=== PATIENT | male | born 1940 | race Caucasian/White ===

== ENCOUNTER 2024-08-25 22:10 | Emergency (ER) | payer MEDICARE, OTHER, SELFPAY ==
[2024-08-25 22:13] VITALS: BP 144/87; BMI 24.4
[2024-08-25 22:15] VITALS: BP 144/87
[2024-08-25 23:12] LABS: ALT (SGPT) 27 U/L (0-50); AST (SGOT) 35 U/L (17-59); Albumin 4.8 g/dl (3.5-5.0); Alkaline Phosphatase 37 U/L (38-126); Blood Urea Nitrogen 39 mg/dl (9-20); Calcium 10.1 mg/dl (8.4-10.2); Carbon Dioxide 23 mmol/L (22-30); Chloride 106 mmol/L (98-107); Estimated Creatinine Clearance 45 ml/min; Glucose 130 mg/dl (70-99); Potassium 4.6 mmol/L (3.5-5.1); Sodium 140 mmol/L (135-145); Total Bilirubin 1.1 mg/dl (0.2-1.3); Total Protein 6.5 g/dl (6.3-8.2); eGFR > 60.00
[2024-08-25 23:15] LABS: Hematocrit 40.5 % (39.0-52.0); Hemoglobin 12.9 g/dL (13.0-18.0); Mean Corp Hgb Conc. 31.9 g/dL (33.0-37.0); Mean Corpuscular Hgb 28.5 pg (27.0-31.0); Mean Corpuscular Volume 89.4 fL (80.0-94.0); Platelet Count 105 10^3/uL (130-400); Red Blood Cell Count 4.53 10^6/uL (4.70-6.10); Red Cell Dist. Width 14.6 % (11.5-14.5); White Blood Cell Count 7.6 10^3/uL (4.8-10.8)
--- NOTE | 2024-08-25 23:21 | ED.GENMED ---
History of Present Illness
General
Chief Complaint: Cardiac Symptoms
Source: patient and spouse
Exam Limitations: none
Time Seen by Provider: 08/25/24 22:20
Nursing documentation reviewed up to this point in time: agreed with
History of Present Illness
History of Present Illness:
Note:
CHIEF COMPLAINT(S)
Palpitations and lightheadedness for the past three to four hours.
HISTORY OF PRESENT ILLNESS
The patient is an 84-year-old male who presented with palpitations and lightheadedness for the past three to four hours. He described experiencing a rhythm of three heartbeats followed by a pause, repeatedly, during these episodes. The patient
reported no chest pain or shortness of breath. He mentioned having had no recent changes in his cardiac history or medication. He has a pacemaker and is under the care of a brewery pumper, Dr. Naseem Hernandez at [facility]. The patients history
includes previous open-heart surgery, a five-bypass surgery in 2014, episodes of atrial fibrillation, and steady, but asymptomatic episodes of arrhythmia, noted during regular checks every six months.
The patient is on the blood thinner Apixaban (Eliquis) and reports adherence to his medication regimen. He has experienced leg swelling mainly on the right side, previously attributed to his chemotherapy medication.
CHRONIC MEDICAL CONDITIONS SIGNIFICANTLY AFFECTING CARE
- History of coronary artery disease and open-heart surgery.
- Pacemaker dependency for arrhythmia management.
- Episodes of atrial fibrillation.
MEDICATIONS
- Apixaban (Eliquis), no missed doses reported.
REVIEW OF SYSTEMS
- Cardiovascular: Palpitations described as three beats followed by a pause.
- General: Experiencing lightheadedness.
- Respiratory: No shortness of breath.
- Gastrointestinal: No nausea reported.
- Integumentary: Swelling predominantly in the right leg.
PHYSICAL EXAM
- Cardiovascular: No active palpitations at the time of examination. Heart sounds normal.
- Respiratory: Lung sounds clear.
- Integumentary: Right leg swelling noted.
Nursing notes reviewed and vital signs reviewed.
PROBLEM LIST
Acute:
- Palpitations
- Lightheadedness
Chronic:
- Coronary artery disease
- Pacemaker dependency
- Atrial fibrillation
PLAN
- Conduct a physical examination and blood work.
- Interrogate the pacemaker to assess any arrhythmic events.
- Perform a chest X-ray.
- Continue monitoring and evaluate findings from pacemaker interrogation and blood work.
DIFFERENTIAL DIAGNOSIS
The Differential Diagnosis includes, in no particular order and is not limited to:
1. Atrial fibrillation
2. Bradycardia
3. Ventricular tachycardia
4. Medication reaction
5. Dehydration
6. Sinus node dysfunction
7. Pacemaker malfunction
8. Heart block
9. Anemia
10. Electrolyte imbalance
EKG
My independent EKG interpretation is:
- Rhythm: Atrial-paced rhythm
- Heart Rate: 71 beats per minute
- Premature Supraventricular Complexes: Noted
- Comparison to Previous EKG (March 15, 2020): Change to atrial-paced rhythm
CARE-UPDATE
08/26/24 - 00:15
The chest X-ray indicates no infiltrate. There is slight pulmonary vascular congestion noted without the presence of pleural effusion.
Disposition:
SUMMARY OF ENCOUNTER
The patient is an 84-year-old male with a history of cardiac issues and CLL who presented with earlier symptoms of palpitations and lightheadedness, occurring between 5 and 6 p.m. He denied chest pain, though a brief episode of shortness of breath
was noted by his . Symptoms resolved by the time of presentation. The patient underwent a pacemaker interrogation which showed no acute processes. Blood work indicated normal results overall, though BNP was elevated, and creatinine levels
suggested dehydration. Troponin was negative, and a chest X-ray was normal. Based on these findings, he received fluids for dehydration.
DISPOSITION
The patient opted for discharge home, without symptoms, at his request.
ASSESSMENT
After evaluation, the patients symptoms were considered to possibly result from dehydration, which was resolved with fluid administration. Cardiac and respiratory acute issues were ruled out through normal pacemaker interrogation, troponin levels,
and chest X-ray results.
PLAN
- Discharge home at the patient�s request with resolved symptoms.
- Ensure patient understands when to seek medical attention if symptoms recur.
INDEPENDENT INTERPRETATION OF TESTS
- My independent interpretation of the blood work shows a BNP of 39, indicating fluid overload, and a creatinine level of 1.1, suggesting dehydration.
- My independent interpretation of the chest X-ray shows normal findings.
- Pacemaker interrogation indicated no acute processes.
FOLLOW-UP INSTRUCTIONS
The patient was discharged with no further symptoms and instructed to return for medical attention should symptoms recur or worsen.
MEDICATION RECONCILIATION
The patient is on Apixaban (Eliquis) for atrial fibrillation anticoagulation, with no reported missed doses.
MEDICAL DECISION MAKING
Number and Complexity of Problems Addressed: The patient presented with acute complaints of palpitations and lightheadedness. Chronic issues such as atrial fibrillation and CLL were considered in the differential diagnosis and management plan.
Data: Comprehensive evaluation included pacemaker interrogation, blood work, and imaging, ruling out acute cardiac issues. The assessment pointed towards dehydration as a contributing factor.
Risk: The patient has multiple chronic medical issues, and the decision to discharge was guided by resolution of acute symptoms and patients preference, indicating moderate risk. Consideration of further hospitalization or escalation was deemed
unnecessary upon symptom resolution.
Past History
Past History
ED Past Medical History: Arrthythmia (afib on ASA only), CAD, HTN, Hypercholesterolemia, NIDDM and Hypothyroidism
ED Past Surgical History: Cholecystectomy (03/10/20)
Social History
Tobacco: Non-smoker
Personal:
Review of Systems
Review of Systems
Allergies reviewed?: Yes
All Other Systems: ROS reviewed and negative except as documented in HPI and ROS
Constitutional: Reports no symptoms
EENT: Reports no symptoms
Respiratory: Reports no symptoms
Cardiac: Reports palpitations
ABD/GI: Reports no symptoms
: Reports no symptoms
Musculoskeletal: Reports no symptoms
Skin: Reports no symptoms
Neurological: Reports no symptoms
Endocrine: Reports no symptoms
Hematologic/Lymphatic: Reports no symptoms
Psychiatric: Reports anxiety
Phy Exam
General Physical Exam
General Presentation: well appearing and no apparent distress
General Skin: warm and dry
General Habitus: normal
General Mental: alert
General Hydration: appears well hydrated
ENT Exam
ENT Exam: EOMI, pharynx normal, neck supple and normocephalic
Eye Exam
Eye Exam: PERRL, cornea clear and conjunctiva normal
Cardiovascular Exam
Cardiovascular Exam: regular rate/rhythm, no edema, no murmur, normal peripheral pulses and other (Sternotomy scar midline)
Pulmonary Exam
Pulmonary Exam: lungs clear, no respiratory distress, no rales, no crackles, no rhonchi, no stridor, no wheezing and no cough
Gastrointestinal Exam
Gastrointestinal Exam: normal bowel sounds, non tender, soft, no organomegaly, no pulsatile mass and non distended
Neurological Exam
Neurological Exam: alert, oriented x3, no motor deficits and speech normal
Musculoskeletal Exam
Musculoskeletal Exam: full ROM and no edema
Skin Exam
Skin Exam: normal color, warm/dry, no rash and no petechia
Psychiatric Exam
Psychiatric Exam: normal mood/affect
Course
Orders/Labs/Results
Orders:
Orders
08/25/24 22:11
EKG [Electrocardiogram (*1)] Urgent
Reason for Study: Palpitations
08/25/24 22:12
EKG- Treatment ONCE
08/25/24 22:33
Cardiac Monitoring- Treatment ONCE
IV Insert/Care/Rem.- Treatment PRN
Pulse Ox/spot Check [RESP] Urgent
Quantity: 1
Special Instructions: ON ROOM AIR
08/25/24 22:36
Complete Blood Count/With Diff Urgent
Comprehensive Metabolic Panel Urgent
Manual Differential Urgent
NT-proBNP Urgent
Comment: ADD ON
Troponin I Urgent
08/26/24 00:00
CR Chest - 2 Views Urgent
Reason For Exam: palpitations
08/26/24 00:14
Add On- LAB Urgent
Tests Added?: pro-bnp
08/26/24 00:15
0.9% Sodium Chloride 500 ml [Nss] 500 ml IV BOLUS
Abnormal Lab Results
08/25/24
22:36
RBC 4.53 L 10^6/uL
(4.70-6.10)
Hgb 12.9 L g/dL
(13.0-18.0)
MCHC 31.9 L g/dL
(33.0-37.0)
RDW 14.6 H %
(11.5-14.5)
Plt Count 105 L 10^3/uL
(130-400)
BUN 39 H mg/dl
(9-20)
Glucose 130 H mg/dl
(70-99)
Alkaline Phosphatase 37 L U/L
(38-126)
08/25/24 22:36
08/25/24 22:36
Vital Signs
Initial and Last Documented VS:
Initial Vital Signs
Temp Pulse Resp BP Pulse Ox
98.1 F 69 18 144/87 98
08/25/24 22:13 08/25/24 22:13 08/25/24 22:13 08/25/24 22:13 08/25/24 22:13
Last Documented Vital Signs
Temp Pulse Resp BP Pulse Ox
98.1 F 70 20 144/87 96
08/25/24 22:13 08/25/24 23:00 08/25/24 23:00 08/25/24 22:15 08/25/24 23:00
*Pulse Oximetry
Patient hypoxic: no
*Critical Care Note
Total Time (30-74mins, 75-104mins- exclusive of procedures): Not Applicable
Update Note
Update Note:
Spoke with [employer] indirect sales representative. No events tonight to explain palpitations. Pacemaker is functioning normally.
ED Attending Note
-
Portions of this chart may have been created with voice recognition software.� Occasional wrong word or��sound alike� substitutions may have occurred due to the inherent limitations of voice recognition software.
Discharge Plan
Departure
Patient Disposition: Home (Routine Discharge)
Date of Disposition: 08/26/24
Time of Disposition: 00:51
Patient with high blood pressure during this ER visit?: Yes
Condition: Good
Discharge Problem:
Palpitations, Acute dehydration
Instructions: Dehydration in adults - ED discharge instructions, Palpitations - ED discharge instructions, BLOOD PRESSURE
Prescriptions:
No Action
tamsulosin 0.4 MG capsule
0.4 mg PO DAILY Qty: 14 0RF
cefdinir 300 MG capsule
300 mg PO BID Qty: 14 0RF
Referrals:
Brian De Anda DO [Family Provider, Family Practice]
Activity Restrictions/Additional Instructions:
Thank You for choosing [facility].
It was a pleasure meeting you and taking part in your care. We hope for your continued healing and wellness.
Please read discharge instructions in their entirety. However, they are for general education and may not describe your exact diagnosis at discharge. Information on your ER visit and medical conditions were discussed with you along with appropriate
follow up information...
If indicated, please take your medications as instructed and indicated on discharge paperwork.
Please schedule a follow up appointment as directed. Call to schedule an appointment
Please return to the emergency department with ANY change in, persisting, or worsening of symptoms. If any of your symptoms do not improve, or persist, or become more severe within 6-12 hours, please return to the emergency department for further
care.
Please return to the emergency department if you develop a headache, neck pain/stiffness, fever greater than 100.4F, chest pain, shortness of breath, persistent nausea, vomiting, slurred speech, difficulty walking, numbness/tingling, weakness, signs
of infection or any other symptoms that are worrisome to you.
If you have any questions or concerns please do not hesitate to call the Hospital at or E-mail me directly at [email or web address]
Interventions
Interventions:
*Risk Screen - Suicide Last Done: 08/25/24 22:13
*General Assessment Last Done: 08/25/24 22:13
*Neglect/Abuse Screening Last Done: 08/25/24 22:13
*ED- Fall Risk Assessment Last Done: 08/25/24 22:13
ED- Pulmonary Assessment Last Done: 08/25/24 22:39
ED- Cardiac Assessment Last Done: 08/25/24 22:39
Discharge Date and Time
Print Language: WELSH
[2024-08-25 23:24] LABS: Troponin I < 0.012 ng/ml
[2024-08-26] MEDS: NSS 500 IV (00:15)
[2024-08-26 00:22] VITALS: BP 101/64
[2024-08-26 00:57] LABS: NT-proBNP 473 pg/ml
[2024-08-26 01:00] VITALS: BP 103/61
[2024-08-27 14:51] LABS: Band Neutrophils 0 % (0-3); Segmented Neutrophils 1 % (42-75)
[2024-08-27 14:52] LABS: Atypical Lymphocytes 59 %; Eosinophils 1 % (0-6); Lymphocytes 39 % (20-51)
[2024-08-27 14:53] LABS: Platelets Checked Yes
[2024-08-27 15:03] LABS: Normal RBC Morphology No
[2024-08-27 15:06] LABS: Acanthocytes Slight; Anisocytosis Slight; Hypochromasia Slight; Ovalocytes Slight; Total Cells Counted 100
--- NOTE | 2024-08-27 15:23 | ED.ADDNOTE ---
ED Addendum
ED Addendum
ED Addendum Note:
Received message from the lab indicating that the patient's absolute count is 0. He does have 59% atypical lymphocytes in the setting of CLL. According to the patient when I called him, it appears that these kind of numbers have been described in
the recent past. He has no fevers. He feels well. He has a follow-up with his cancer doctor affiliated with [facility] coming up soon.
== END 2024-08-26 01:21 | disposition home or self-care (01) ==
LOC: EMR 22:10
PROVIDERS: EMERGENCY PHYSICIAN Student in an Organized Health Care Education/Training Program; FAMILY PHYSICIAN Family Medicine
DX: R00.2 Palpitations (principal); R42 Dizziness and giddiness; R06.02 Shortness of breath; M79.89 Other specified soft tissue disorders; E86.0 Dehydration; I48.91 Unspecified atrial fibrillation; I25.10 Atherosclerotic heart disease of native coronary artery without angina pectoris; I10 Essential (primary) hypertension; E78.00 Pure hypercholesterolemia, unspecified; E11.9 Type 2 diabetes mellitus without complications; C91.10 Chronic lymphocytic leukemia of B-cell type not having achieved remission; E03.9 Hypothyroidism, unspecified; Z79.01 Long term (current) use of anticoagulants; Z90.49 Acquired absence of other specified parts of digestive tract; Z95.0 Presence of cardiac pacemaker; Z95.1 Presence of aortocoronary bypass graft; Z88.5 Allergy status to narcotic agent; Z88.2 Allergy status to sulfonamides
CPT/HCPCS: 99285; 94760; 93288; 71046; 80053; 83880; 84484; 85025; 93005